=== PATIENT | female | born 1970 | race African-American/Black ===

== ENCOUNTER 2016-05-06 11:28 | Emergency (ER) | payer BC | END 2016-05-06 14:25 | disposition home or self-care (01) | LOC: D.ER 11:28 | DX: B34.9 Viral infection, unspecified (principal) ==

== ENCOUNTER 2017-04-23 12:23 | Emergency (ER) | payer SELFPAY | END 2017-04-23 14:01 | disposition home or self-care (01) | LOC: D.ER 12:23 | DX: J06.9 Acute upper respiratory infection, unspecified (principal); J20.9 Acute bronchitis, unspecified ==

== ENCOUNTER 2017-08-04 23:50 | Emergency (ER) | payer SELFPAY | END 2017-08-05 00:25 | disposition home or self-care (01) | LOC: D.ER 23:50 | DX: K02.9 Dental caries, unspecified (principal); K08.89 Other specified disorders of teeth and supporting structures; K04.7 Periapical abscess without sinus ==

== ENCOUNTER 2018-07-10 17:44 | Emergency (ER) | payer SELFPAY ==
[~2018-07-10] VITALS: Ht 165.1 cm; Wt 100.0 kg
[2018-07-10 17:46] VITALS: Ht 165.1 cm; Wt 100.0 kg
[2018-07-10] MEDS ORDERED: HYDROCODON-ACE1 EAC7 PO (18:56)
[2018-07-10 19:21] VITALS: BP 125/75
== END 2018-07-10 19:22 | disposition home or self-care (01) ==
LOC: D.ER 17:44
DX: M25.522 Pain in left elbow (principal); M54.5 Low back pain; V43.52XA Car driver injured in collision with other type car in traffic accident, initial encounter; Y93.89 Activity, other specified; Y92.410 Unspecified street and highway as the place of occurrence of the external cause

== ENCOUNTER 2018-12-14 17:04 | Emergency (ER) | payer SELFPAY ==
[~2018-12-14] VITALS: Ht 165.1 cm; Wt 102.3 kg
[~2018-12-14 17:04] MED LIST: HYDROCODON-ACE1 EAC7 PO
[2018-12-14 17:28] VITALS: BP 180/110; Ht 165.1 cm; Wt 102.3 kg
[2018-12-15] MEDS ORDERED: TYLENOL W/CODEI1 TAB PO (00:15)
== END 2018-12-14 19:34 | disposition left against medical advice (07) ==
LOC: D.ER 17:04
DX: K08.89 Other specified disorders of teeth and supporting structures (principal)

== ENCOUNTER 2018-12-14 22:23 | Emergency (ER) | payer SELFPAY ==
[~2018-12-14] VITALS: Ht 165.1 cm; Wt 90.9 kg
[2018-12-14 22:36] VITALS: Ht 165.1 cm; Wt 90.9 kg
[2018-12-15] MEDS ORDERED: TYLENOL W/CODEI1 TAB PO (00:15)
[2018-12-15 00:30] VITALS: BP 135/86
== END 2018-12-15 00:30 | disposition home or self-care (01) ==
LOC: D.ER 22:23
DX: K02.9 Dental caries, unspecified (principal); S02.5XXA Fracture of tooth (traumatic), initial encounter for closed fracture; X58.XXXA Exposure to other specified factors, initial encounter

== ENCOUNTER 2020-08-26 12:19 | Emergency (ER) | payer SELFPAY ==
[~2020-08-26] VITALS: Ht 165.1 cm; Wt 102.3 kg
[~2020-08-26 12:19] MED LIST changes: +BUTALB-APAP-CA1 EACH PO; +METFORMIN HCL500 M1 PO; +NORVASC5 MG PO; +TYLENOL W/CODEI1 TAB PO
[2020-08-26 12:25] VITALS: BP 198/100; Ht 165.1 cm; Wt 102.3 kg
[2020-08-26 12:59] LABS: BASOPHILS 1.5 % (0-2); EOSINOPHILS 0.7 % (0-7); HEMATOCRIT 41.9 % (36.0-48.0); HEMOGLOBIN 13.4 g/dL (12-16); LYMPHOCYTES 28.8 % (15-50); MCH 25.2 pg (26.0-34.0); MCHC 31.9 g/dL (31.0-37.0); MCV 79.1 fL (80.0-100.0); MEAN PLATELET VOLUME 9.3 fL (7.4-10.4); MONOCYTES 4.8 % (2-11); NEUTROPHILS 64.2 % (40-80); PLATELET COUNT 399 10x3/uL (130-400); RDW 14.6 % (11.5-14.5); WBC 14.9 10x3/uL (4.8-10.8)
[2020-08-26 13:12] LABS: ALBUMIN 3.6 g/dL (3.4-5.0); BILIRUBIN - TOTAL 0.69 mg/dL (0.2-1.3); CALCIUM 9.4 mg/dL (8.5-10.1); CARBON DIOXIDE 24.3 mmol/L (21.0-32.0); CREATININE - SERUM 1.1 mg/dL (0.6-1.3); POTASSIUM - SERUM 3.3 mmol/L (3.5-5.1); PROTEIN - SERUM 8.5 g/dL (6.4-8.2)
[2020-08-26] MEDS ORDERED: LISINOPRIL5 MG PO (13:30)
[2020-08-26] MEDS ORDERED: GLUCOPHAGE500 MG PO (13:30)
[2020-08-26] MEDS ORDERED: NORVASC5 MG PO (13:30)
[2020-08-26 13:53] LABS: BILIRUBIN NEGATIVE (NEGATIVE); KETONE NEGATIVE (NEGATIVE); NITRITE NEGATIVE (NEGATIVE); UROBILINOGEN NORMAL mg/dL (< 2)
[2020-08-26 13:55] LABS: BACTERIA FEW HPF (NONE SEEN); SQUAMOUS EPITHELIAL OCC HPF (0-4); WHITE CELLS - URINE RARE HPF (0-4)
== END 2020-08-26 17:40 | disposition home or self-care (01) ==
LOC: D.ER 12:19
PROVIDERS: Emergency Medicine
DX: E13.65 Other specified diabetes mellitus with hyperglycemia (principal); I10 Essential (primary) hypertension